=== PATIENT | male | born 1955 | race Hispanic/Latino ===

== ENCOUNTER 2017-12-21 23:04 | Inpatient (IN) | payer MEDICAID, OTHER ==
--- NOTE | 2017-12-21 23:15 | ED PDOC ---
Psych Transfer Clearance - Clearance Statement Clearance Statement: Reviewed vital signs, lab results and transfer papers. Patient clinically stable for psychiatric admission.
[2017-12-22] MEDS ORDERED: Alum-Mag Hydrox-Simethicone Susp (30 mL) PO PRN (00:02)
[2017-12-22] MEDS ORDERED: Magnesium Hydroxide Susp 30 ml UD PO PRN (00:02)
[2017-12-22] MEDS ORDERED: Bismuth Subsalicylate 262 mg/15 ml Sus (240 ml) PO PRN (00:02)
--- NOTE | 2017-12-22 00:27 | PCM.BM ---
<Jeremie Crawford - Last Filed: 12/22/17 00:25> Treatment Plan Problems - Problems identified on initial assessmt Suicidal Ideation Date Initiated: 12/22/17 Time Initiated: : Assessment reference: NA Status: Active Priority: 1 Ineffective Coping Date Initiated: 12/22/17 Time Initiated: 00: Assessment reference: NA Status: Active Priority: 2 Anxiety Date Initiated: 12/22/17 Time Initiated: 00: Assessment reference: NA Status: Active Hoplessness/Helplessness Date Initiated: 12/22/17 Time Initiated: 00: Assessment reference: NA Status: Active Priority: 4 Treatment assets and liabiliti Patient Assests: adapts well, cooperative, self-reliant, ADL independent, negotiates basic needs Patient Liabilities: physical pain, poor support system, substance abuse, medical problems - Milieu Protocol Maintain good personal hygiene: every shift Encourage regular showers, every shift Remind patient to perform daily oral care, every shift Assist patient to perform ADL's Maintain personal safety: daily Educate patient to report safety concerns to staff, daily Monitor environment for contraband/sharps Medication safety: Monitor for expected outcome, potential side effects: daily, Assess barriers to learning: daily, Assess readiness for medication education: daily <Fernanda Harrington - Last Filed: 12/22/17 11:33> - Diagnosis (1) Major depressive disorder Status: Acute Interventions: Medication management, Individual and group therapy, Psychoeducation 12/22/17 11:33 <Macho Leonardo - Last Filed: 12/23/17 07:42> Family Contact Family involvement: Famliy/SO not involved Family contact: Patient declines to allow family contact at present Family contact name: Pt declined. - Goals for Treatment Patient goals for treatment: Pt would like team to better evaluate him to find the cause and treat his amnesia. Discharge/Continuing Care - Education Needs Education Needs: Patient Medication, Patient Diagnosis/Disease Process, Patient Coping Skills, Patient Anger Management skills, Patient Placement options, Patient Community resources, Patient Aftercare Safety Plan - Discharge Discharge Criteria: Tolerates medication w/o severe side effects, Free of Suicidal thoughts, Free of agitation, Normal sleep pattern, Reduction of target symptoms Discharge to:: [facility] - Treatment Team Participation Patient/Family/SO Statement: 12/22/17 09:41 Pt was met with in treatment team where he reported to depression and anxiety due to his recent amnesia where he has trouble storing new memories for the past 4 months. Pt reported he experiences neuropathy and wanted to lay down on train tracks to "lob off my feet." Pt offered no questions, comments or complaints at this time. Discussed with Family/SO: No Was Patient/Family/SO present at Treatment Team Meeting: Yes
[2017-12-22 06:39] LABS: HEMOGLOBIN 14.1 g/dL (12.0-18.0); MEAN CELL VOLUME 92.2 fl (80.0-94.0); MEAN CORPUSCULAR HEMOGLOBIN 30.5 pg (27.0-31.0); MEAN CORPUSCULAR HGB CONC 33.1 g/dL (33.0-37.0); RBC 4.64 Mil/uL (4.40-5.90); RED CELL DISTRIBUTION WIDTH 15.6 % (11.5-14.5); WHITE BLOOD COUNT 8.2 K/uL (4.8-10.8)
[2017-12-22 07:26] LABS: ALB/GLOB RATIO 1.4 (1.0-2.1); ALBUMIN 4.1 g/dL (3.5-5.0); ALT/SGPT 29 U/L (21-72); AST/SGOT 36 U/L (17-59); BLOOD UREA NITROGEN 25 mg/dl (9-20); CALCIUM 8.9 mg/dL (8.4-10.2); GFR AFRICAN-AMERICAN > 60; GFR NON-AFRICAN AMERICAN > 60; HDL CHOLESTEROL 39 MG/DL (30-70)
[2017-12-22 07:33] LABS: IRON 137 ug/dL (49-181)
[2017-12-22 07:37] LABS: LDL CHOLESTEROL 90 mg/dL (0-129)
[2017-12-22 07:44] LABS: T4 5.34 ug/dl (5.5-11.0)
[2017-12-22 07:47] LABS: % IRON SATURATION 43 % (20-55); TOTAL IRON BINDING CAPACITY 318 ug/dL (250-450)
--- NOTE | 2017-12-22 11:33 | PCM.PSYCH ---
Initial Psychiatric Evaluation - Initial Psychiatric Evaluation Type of Admission: Voluntary Legal Status: Capacity Chief Complaint (in patient's own words): "I'm depressed." Patient's Reaction to Hospitalization: HPI: 62 yo male w/ h/o depression, presents w/ worsening depression and anxiety , w/ suicidal ideation and plan to lie on the train tracks to chop off his legs. He reports sleep/appetite disturbances. +Hopelessness/helplessness. Denies AH/VH/paranoia/delusion. PMHx: Gout, chronic pain, neuropathy, HLD ALL: NKDA PHx: Past psychiatric hospitalizations for depression SHx: Homeless, unemployed, smokes 1ppd; denies drug/etoh use FHx: Denies family h/o mental illness Current Medications: Active Medications Generic Name Dose Route Start Last Admin Trade Name Freq PRN Reason Stop Dose Admin Acetaminophen 650 mg 12/22/17 00:02 12/22/17 08:27 Tylenol 325mg Tab PO 650 mg Q4 PRN Administration Pain, moderate (4-7) Al Hydrox/Mg Hydrox/Simethicone 30 ml 12/22/17 00:02 Maalox Plus 30 Ml PO Q4 PRN Dyspepsia Bismuth Subsalicylate 524 mg 12/22/17 00:02 Pepto-Bismol PO Q4 PRN Diarrhea Duloxetine HCl 60 mg 12/22/17 11:15 Cymbalta PO DAILY RA Lorazepam 0.5 mg 12/22/17 00:02 12/22/17 00:33 Ativan PO 01/05/18 00:03 0.5 mg HS PRN Administration Insomnia Lorazepam 0.5 mg 12/22/17 00:02 Ativan PO 01/05/18 00:03 Q6 PRN Anixety/Agitation Magnesium Hydroxide 30 ml 12/22/17 00:02 Milk Of Magnesia PO HS PRN Constipation Nicotine 1 patch 12/22/17 09:00 12/22/17 08:24 Nicoderm Cq TD 1 patch DAILY RA Administration Past Psychiatric History - Past Psychiatric History Previous Treatment History: Inpatient Pertinent Medical Hx (Current Medical&Sleep Prob, Allergies): Allergies Allergy/AdvReac Type Severity Reaction Status Date / Time No Known Allergies Allergy Verified 12/21/17 23:10 Review of Systems - Psychiatric Psychiatric: As Per HPI, Abnormal Sleep Pattern, Anhedonia, Anxiety, Change in Appetite, Depression, Hopelessness, Irritability, Memory Loss, Suicidal Ideation Mental Status Examination - Personal Presentation Personal Presentation: Looks stated age - Affect Affect: Constricted - Motor Activity Motor Activity: Calm - Reliability in Providing Information Reliability in Providing Information: Fair - Speech Speech: Organized - Mood Mood: Depressed - Formal Thought Process Formal Thought Process: No Impairment - Hallucinations/Delusions Additional comments: No AH/VH/paranoia/delusions - Obsessions/Compulsions Obsessions: No Compulsions: No - Cognitive Functions Orientation: Person, Place, Situation, Time Sensorium: Alert Attention/Concentration: Attentive Estimate of Intelligence: Average Judgement: Intact, as evidence by: Insight regarding need for hospitalization Memory: Recent intact, as evidence by: Ability to recall events of the day - Risk Risk: Suicidal - Strength & Assets Inventory Strength & Assets Inventory: Cooperative - Limitations Limitations: Other (Homelessness, Poverty) DSM 5 DX - DSM 5 DSM 5 Diagnosis: Major Depressive Disorder - Recommended/Plan of Treatment Treatment Recommendations and Plan of Treatment: Major Depressive Disorder -Admit to psychiatry unit -Individual and group therapy -Psychoeducation -Increase Cymbalta -Medicine consult -Disposition planning Projected ELOS: 5-7 days Discharge Plan and Discharge Criteria: Discharge when patient is psychiatrically stable - Smoking Cessation Smoking Cessation Initiated: Yes
[2017-12-22 12:36] LABS: FOLATE > 20.0 ng/mL
--- NOTE | 2017-12-22 17:12 | CP.PCM.HP ---
History of Present Illness - History of Present Illness History of Present Illness: Medical consult for psychiatric admission. CC: confusion/amnesia HPI: 62 yo WM PMH of gout, high chol, arthritis and chronic back pain, and substance abuse admitted to psych unit due to amnesia, confusion. Management by psych. CAT scan report from [facility] for acute events. ROS: denies sob, cp, cough, n, v, d, dysria, denies SI, denies HI PMH: gout, high chol, arthritis, chronic back pain peripheral neuropathy, depression, no cad, no dm FH: no fh of dm, cad PSH: none Meds: Allopurinol, lipitor, nabumetone, neurontin, colchicine Allergies: nkda PSocH: drinks 1-2 drinks beer, Heroin last use 3 months ago IV smokes 1ppd x 4 years homeless Present on Admission - Present on Admission Any Indicators Present on Admission: No History of DVT/PE: No History of Uncontrolled Diabetes: No Urinary Catheter: No Decubitus Ulcer Present: No Review of Systems - Review of Systems All systems: reviewed and no additional remarkable complaints except Review of Systems: except HPI Past Patient History - Past Medical History & Family History Past Medical History?: Yes - Past Social History Smoking Status: Heavy Smoker > 10 Cigarettes Daily Alcohol: < 2 Drinks/Day Home Situation {Lives}: Homeless - HEENT Other/Comment: uses hearing aid x 20 yrs - MUSCULOSKELETAL/RHEUMATOLOGICAL Hx Back Pain: Yes Hx Falls: No Hx Fractures: Yes Hx Gout: Yes - PSYCHIATRIC Hx Substance Use: Yes (heroine) - SURGICAL HISTORY Other/Comment: kneright knee sx,laminectomy,b/l ear operation - ANESTHESIA Hx Anesthesia: Yes Hx Anesthesia Reactions: No Hx Malignant Hyperthermia: No Has any member of the family had a problem w/ anesthesia?: No Meds Allergies/Adverse Reactions: Allergies Allergy/AdvReac Type Severity Reaction Status Date / Time No Known Allergies Allergy Verified 12/21/17 23:10 Physical Exam - Constitutional Appears: Well, Non-toxic, Unkempt - Head Exam Head Exam: ATRAUMATIC, NORMAL INSPECTION, NORMOCEPHALIC - Eye Exam Eye Exam: Normal appearance - ENT Exam ENT Exam: Mucous Membranes Dry - Neck Exam Neck exam: Positive for: Full Rom - Respiratory Exam Respiratory Exam: Clear to Auscultation Bilateral, NORMAL BREATHING PATTERN. absent: Rales, Rhonchi, Wheezes - Cardiovascular Exam Cardiovascular Exam: REGULAR RHYTHM, +S1, +S2. absent: Systolic Murmur - GI/Abdominal Exam GI & Abdominal Exam: Normal Bowel Sounds, Soft. absent: Organomegaly, Rebound, Tenderness - Extremities Exam Extremities exam: Positive for: normal inspection - Back Exam Back exam: NORMAL INSPECTION - Neurological Exam Neurological exam: Alert, Oriented x3 - Psychiatric Exam Psychiatric exam: Depressed - Skin Skin Exam: Normal Color Results - Vital Signs Recent Vital Signs: Last Vital Signs Temp 98.2 F 12/22/17 16:43 Pulse 75 12/22/17 16:43 Resp 20 12/22/17 16:43 BP 134/79 12/22/17 16:43 Pulse Ox 100 12/21/17 23:10 - Labs Result Diagrams: 12/22/17 05:40 12/22/17 05:40 Labs: Laboratory Results - last 24 hr 12/22/17 12/22/17 12/22/17 05:40 05:40 05:40 WBC 8.2 RBC 4.64 Hgb 14.1 Hct 42.8 MCV 92.2 MCH 30.5 MCHC 33.1 RDW 15.6 H Plt Count 236 Sodium 141 Potassium 4.2 Chloride 106 Carbon Dioxide 23 Anion Gap 16 BUN 25 H Creatinine 1.2 Est GFR ( Amer) > 60 Est GFR (Non-Af Amer) > 60 Random Glucose 88 Hemoglobin A1c 5.9 Calcium 8.9 Iron TIBC % Saturation Ferritin 108.0 Total Bilirubin 0.6 AST 36 ALT 29 Alkaline Phosphatase 52 Total Protein 7.1 Albumin 4.1 Globulin 3.0 Albumin/Globulin Ratio 1.4 Triglycerides 212 H Cholesterol 180 LDL Cholesterol Direct 90 HDL Cholesterol 39 Vitamin B12 330 Folate > 20.0 Free T4 Thyroxine (T4) 5.34 L TSH 3rd Generation 1.51 RPR 12/22/17 12/22/17 12/22/17 05:40 05:40 05:40 WBC RBC Hgb Hct MCV MCH MCHC RDW Plt Count Sodium Potassium Chloride Carbon Dioxide Anion Gap BUN Creatinine Est GFR ( Amer) Est GFR (Non-Af Amer) Random Glucose Hemoglobin A1c Calcium Iron 137 TIBC 318 % Saturation 43 Ferritin Total Bilirubin AST ALT Alkaline Phosphatase Total Protein Albumin Globulin Albumin/Globulin Ratio Triglycerides Cholesterol LDL Cholesterol Direct HDL Cholesterol Vitamin B12 Folate Free T4 0.79 Thyroxine (T4) TSH 3rd Generation RPR Nonreactive - Imaging and Cardiology CT scan - head Status: Report reviewed by me
--- NOTE | 2017-12-22 17:17 | CP.PCM.CON ---
History of Present Illness - History of Present Illness History of Present Illness: Medical consult for psychiatric admission. CC: confusion/amnesia HPI: 62 yo WM PMH of gout, high chol, arthritis and chronic back pain, and substance abuse admitted to psych unit due to amnesia, confusion. Management by psych. CAT scan report from [facility] for acute events. ROS: denies sob, cp, cough, n, v, d, dysria, denies SI, denies HI PMH: gout, high chol, arthritis, chronic back pain peripheral neuropathy, depression, no cad, no dm FH: no fh of dm, cad PSH: none Meds: Allopurinol, lipitor, nabumetone, neurontin, colchicine Allergies: nkda PSocH: drinks 1-2 drinks beer, Heroin last use 3 months ago IV smokes 1ppd x 4 years homeless Review of Systems - Review of Systems All systems: reviewed and no additional remarkable complaints except Review of Systems: except HPI Past Patient History - Past Medical History & Family History Past Medical History?: Yes - Past Social History Smoking Status: Heavy Smoker > 10 Cigarettes Daily Alcohol: < 2 Drinks/Day Home Situation {Lives}: Homeless - HEENT Other/Comment: uses hearing aid x 20 yrs - MUSCULOSKELETAL/RHEUMATOLOGICAL Hx Back Pain: Yes Hx Falls: No Hx Fractures: Yes Hx Gout: Yes - PSYCHIATRIC Hx Substance Use: Yes (heroine) - SURGICAL HISTORY Other/Comment: kneright knee sx,laminectomy,b/l ear operation - ANESTHESIA Hx Anesthesia: Yes Hx Anesthesia Reactions: No Hx Malignant Hyperthermia: No Has any member of the family had a problem w/ anesthesia?: No Meds Allergies/Adverse Reactions: Allergies Allergy/AdvReac Type Severity Reaction Status Date / Time No Known Allergies Allergy Verified 12/21/17 23:10 - Medications Medications: Current Medications Acetaminophen (Tylenol 325mg Tab) 650 mg PO Q4 PRN PRN Reason: Pain, moderate (4-7) Last Admin: 12/22/17 16:57 Dose: 650 mg Al Hydrox/Mg Hydrox/Simethicone (Maalox Plus 30 Ml) 30 ml PO Q4 PRN PRN Reason: Dyspepsia Allopurinol (Zyloprim) 300 mg PO DAILY [facility] Last Admin: 12/22/17 14:43 Dose: 300 mg Atorvastatin Calcium (Lipitor) 40 mg PO DAILY [facility] Last Admin: 12/22/17 14:43 Dose: 40 mg Bismuth Subsalicylate (Pepto-Bismol) 524 mg PO Q4 PRN PRN Reason: Diarrhea Colchicine (Colchicine) 0.6 mg PO DAILY [facility] Duloxetine HCl (Cymbalta) 60 mg PO DAILY [facility] Last Admin: 12/22/17 13:31 Dose: 60 mg Folic Acid (Folic Acid) 1 mg PO DAILY [facility] Last Admin: 12/22/17 14:43 Dose: 1 mg Gabapentin (Neurontin) 800 mg PO TID [facility] Last Admin: 12/22/17 16:59 Dose: 800 mg Lorazepam (Ativan) 0.5 mg PO HS PRN PRN Reason: Insomnia Stop: 01/05/18 00:03 Last Admin: 12/22/17 00:33 Dose: 0.5 mg Lorazepam (Ativan) 0.5 mg PO Q6 PRN PRN Reason: Anixety/Agitation Stop: 01/05/18 00:03 Magnesium Hydroxide (Milk Of Magnesia) 30 ml PO HS PRN PRN Reason: Constipation Nicotine (Nicoderm Cq) 1 patch TD DAILY [facility] Last Admin: 12/22/17 08:24 Dose: 1 patch Thiamine HCl (Vitamin B1 Tab) 100 mg PO DAILY [facility] Last Admin: 12/22/17 14:43 Dose: 100 mg Tramadol HCl (Ultram) 50 mg PO Q8 PRN PRN Reason: Pain, severe (8-10) Physical Exam - Additional Findings Additional findings: - Constitutional Appears: Well, Non-toxic, Unkempt - Head Exam Head Exam: ATRAUMATIC, NORMAL INSPECTION, NORMOCEPHALIC - Eye Exam Eye Exam: Normal appearance - ENT Exam ENT Exam: Mucous Membranes Dry - Neck Exam Neck exam: Positive for: Full Rom - Respiratory Exam Respiratory Exam: Clear to Auscultation Bilateral, NORMAL BREATHING PATTERN. absent: Rales, Rhonchi, Wheezes - Cardiovascular Exam Cardiovascular Exam: REGULAR RHYTHM, +S1, +S2. absent: Systolic Murmur - GI/Abdominal Exam GI & Abdominal Exam: Normal Bowel Sounds, Soft. absent: Organomegaly, Rebound, Tenderness - Extremities Exam Extremities exam: Positive for: normal inspection - Back Exam Back exam: NORMAL INSPECTION - Neurological Exam Neurological exam: Alert, Oriented x3 - Psychiatric Exam Psychiatric exam: Depressed - Skin Skin Exam: Normal Color Results - Vital Signs Recent Vital Signs: Last Vital Signs Temp 98.2 F 12/22/17 16:43 Pulse 75 12/22/17 16:43 Resp 20 12/22/17 16:43 BP 134/79 12/22/17 16:43 Pulse Ox 100 12/21/17 23:10 - Labs Result Diagrams: 12/22/17 05:40 12/22/17 05:40 Labs: Laboratory Results - last 24 hr 12/22/17 12/22/17 12/22/17 05:40 05:40 05:40 WBC 8.2 RBC 4.64 Hgb 14.1 Hct 42.8 MCV 92.2 MCH 30.5 MCHC 33.1 RDW 15.6 H Plt Count 236 Sodium 141 Potassium 4.2 Chloride 106 Carbon Dioxide 23 Anion Gap 16 BUN 25 H Creatinine 1.2 Est GFR ( Amer) > 60 Est GFR (Non-Af Amer) > 60 Random Glucose 88 Hemoglobin A1c 5.9 Calcium 8.9 Iron TIBC % Saturation Ferritin 108.0 Total Bilirubin 0.6 AST 36 ALT 29 Alkaline Phosphatase 52 Total Protein 7.1 Albumin 4.1 Globulin 3.0 Albumin/Globulin Ratio 1.4 Triglycerides 212 H Cholesterol 180 LDL Cholesterol Direct 90 HDL Cholesterol 39 Vitamin B12 330 Folate > 20.0 Free T4 Thyroxine (T4) 5.34 L TSH 3rd Generation 1.51 RPR 12/22/17 12/22/17 12/22/17 05:40 05:40 05:40 WBC RBC Hgb Hct MCV MCH MCHC RDW Plt Count Sodium Potassium Chloride Carbon Dioxide Anion Gap BUN Creatinine Est GFR ( Amer) Est GFR (Non-Af Amer) Random Glucose Hemoglobin A1c Calcium Iron 137 TIBC 318 % Saturation 43 Ferritin Total Bilirubin AST ALT Alkaline Phosphatase Total Protein Albumin Globulin Albumin/Globulin Ratio Triglycerides Cholesterol LDL Cholesterol Direct HDL Cholesterol Vitamin B12 Folate Free T4 0.79 Thyroxine (T4) TSH 3rd Generation RPR Nonreactive - Imaging and Cardiology CT scan - head Status: Report reviewed by me Assessment & Plan - Assessment and Plan (Free Text) Assessment: HPI: 62 yo WM PMH of gout, high chol, arthritis and chronic back pain, and substance abuse admitted to psych unit due to amnesia, confusion. Management by psych. CAT scan report from [facility] for acute events. 1. Gout: cont allopurinol prn colchicine 2. Depression - mangement by psych 3. Arthritis/chronic back pain - tramadol prn 4. Peripheral neuropathy - neurontin
[2017-12-23] MEDS ORDERED: COLCHICINE 0.6 MG CAPSULE PO SCH (09:00)
--- NOTE | 2017-12-23 09:43 | PCM.PYCHPN ---
Psychiatric Progress Note - Psychiatric Progress Note Patient seen today, length of contact: Patient evaluated, case discussed with team, chart reviewed Patient Chief Complaint: "I need my pain medications." Problems Identified/Issues Discussed: Patient is irritable with staff, demanding more pain medications and requested to be discharged yesterday. Now, stating that he wants to stay until tomorrow. Patient seems to be exaggerating symptoms for secondary gain and is primarily interested in opiate pain medications. 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 Patient informed he will be observed for safety overnight and discharged tomorrow. Medication Change: No Medical Record Reviewed: Yes Consults ordered or reviewed: Medicine consult Mental Status Examination - Cognitive Function Orientation: Person, Place, Situation, Time Memory: Intact Attention: WNL Concentration: WNL Association: WN Fund of Knowledge: WN - Mood Mood: Other (Angry) - Affect Affect: Other (Irritable) - Speech Speech: Appropriate - Formal Thought Process Formal Thought Process: No Impairment Psychotic Thoughts and Behaviors: No AH/VH/paranoia/delusions - Suicidal Ideation Suicidal Ideation: No - Homicidal Ideation Homicidal Ideation: No Goal/Treatment Plan - Goal/Treatment Plan Need for Continued Stay: Discharge may exacerbated symptoms Progress Toward Problem(s) and Goals/Treatment Plan: Malingering; Opioid Use Disorder; r/o Major Depressive Disorder -Individual and group therapy -Psychoeducation -Continue Cymbalta -Medicine consult -Disposition planning- will observe overnight for safety; patient denies acute AH/VH/SI/HI Estimated Date of D/C: 12/24/17
[2017-12-23 18:07] VITALS: O2SAT 18
[2017-12-24 05:53] VITALS: BP 119/63; PULSE 60; RESP 18; TEMP 97.5
--- NOTE | 2017-12-24 09:39 | PCM.PYCHDC ---
Mental Status Examination - Mental Status Examination Orientation: Person, Place, Situation, Time Memory: Intact Mood: Neutral Affect: Broad Speech: Appropriate Attention: WNL Concentration: WNL Association: WNL Fund of Knowledge: WNL Formal Thought Process: No Impairment Description of patient's judgement and insight: Fair I/J; patient is intentionally manipulative Psychotic Thoughts and Behaviors: No AH/VH/paranoia/delusions Suicidal Ideation: No Current Homicidal Ideation?: No Discharge Summary - Discharge Note Reason for Hospitalization: HPI: 62 yo male w/ h/o depression, presents w/ worsening depression and anxiety , w/ suicidal ideation and plan to lie on the train tracks to chop off his legs. He reports sleep/appetite disturbances. +Hopelessness/helplessness. Denies AH/VH/paranoia/delusion. PMHx: Gout, chronic pain, neuropathy, HLD ALL: NKDA PHx: Past psychiatric hospitalizations for depression SHx: Homeless, unemployed, smokes 1ppd; denies drug/etoh use FHx: Denies family h/o mental illness Consultations:: List each consultation separately and include: 1. Reason for request. 2. Findings. 3. Follow-up Consultations: Medicine consult Summary of Hospital Course include:: 1. Description of specific treatment plan utilized for patients during their course of treatmen. 2. Summarize the time- course for resolution of acute symptoms and/or regressed behaviors. 3. Describe issues identified and worked on during hospitalization. 4. Describe medication utilized. 5. Describe medical problems identified and treated. 6. Reassessment of suicide risk Summary of Hospital Course: Patient was admitted to the psychiatry unit. Individual and group therapy were offered. Patient is irritable w/ staff and uncooperative w/ treatment at times. He gave conflicting, false information and is primarily focused on the hospital provided assisted housing. He exaggerated symptoms to gain psychiatric admission for the secondary gain of housing. Patient was treated w / Cymbalta for reported depressive symptoms. Patient was also demanding treatment with opiate pain medications and was focused on receiving benzos and opiates. No acute AH/VH/SI/HI. He is psychiatrically stable for discharge at this time and told publications writer her will make his own psychiatric appointment upon discharge. - Diagnosis (1) Major depressive disorder Current Visit: Yes Status: Chronic - Final Diagnosis (DSM 5) Condition upon Discharge: STABLE DSM 5: Malingering; Depressive Disorder; Opiate Use Disorder Disposition: HOME/ ROUTINE Follow-up Treatment Plan: Malingering; Depressive Disorder; Opiate Use Disorder -Individual and group therapy -Psychoeducation -Continue Cymbalta -Medicine consult -Patient is psychiatrically stable at this time Prescriptions/Medication Reconciliation: Allopurinol [Zyloprim] 300 mg PO DAILY #30 tab Atorvastatin [Lipitor] 40 mg PO DAILY #30 tab DULoxetine [Cymbalta] 60 mg PO DAILY #30 ecc Gabapentin [Neurontin] 800 mg PO TID #180 cap Nicotine 21 mg/24 hr [Nicoderm Cq] 1 patch TD DAILY #30 patch - Smoking Cessation Smoking Cessation Medication prescribed: Yes - Antipsychotic Medications Pt discharged on 2 or more routine antipsychotic medications: No
== END 2017-12-24 11:40 | disposition home or self-care (01) | DRG 426 ==
LOC: H.ER 23:04 → H.ERHOLD 23:14 → H.STEP 23:45
PROVIDERS: ADMIT Psychiatry & Neurology Psychiatry; ATTEND Psychiatry & Neurology Psychiatry
PROC: GZHZZZZ Group Psychotherapy (ICD-10-PCS; principal; 2017-12-21)
PROC: GZ58ZZZ Individual Psychotherapy, Cognitive-Behavioral (ICD-10-PCS; 2017-12-21)
DX: F32.9 Major depressive disorder, single episode, unspecified (principal); F06.4 Anxiety disorder due to known physiological condition; F11.10 Opioid abuse, uncomplicated; R45.851 Suicidal ideations; Z76.5 Malingerer [conscious simulation]; E78.5 Hyperlipidemia, unspecified; G89.29 Other chronic pain; M10.9 Gout, unspecified; G62.9 Polyneuropathy, unspecified; M19.90 Unspecified osteoarthritis, unspecified site; F17.210 Nicotine dependence, cigarettes, uncomplicated; Z59.0 Homelessness